=== PATIENT | female | born 1980 | race Hispanic/Latino ===

== ENCOUNTER 2017-06-02 15:25 | Outpatient (CLI) | payer OTHER | END 2017-06-02 15:26 | disposition home or self-care (01) | LOC: LABHHL 15:25 | PROVIDERS: ATTEND Surgery | DX: R92.0 Mammographic microcalcification found on diagnostic imaging of breast (principal) | CPT/HCPCS: 88305 ==

== ENCOUNTER 2017-08-04 08:06 | Observation (INO) | payer BC, MEDICARE ==
--- NOTE | 2017-08-02 13:23 | Anesthesia Consultation ---
Anesthesia Consult and Med Hx - Airway Anesthetic Teeth Evaluation: Good ROM Head & Neck: Adequate Mental/Hyoid Distance: Adequate Mallampati Class: Class II Intubation Access Assessment: Good - Pulmonary Exam CTA: Yes - Cardiac Exam Cardiac Exam: RRR - Pre-Operative Health Status ASA Pre-Surgery Classification: ASA2 Proposed Anesthetic Plan: General - Central Nervous System Hx Psychiatric Problems: Yes - Other Systems Hx Alcohol Use: No Hx Substance Use: No Hx Cancer: Yes
[~2017-08-04 08:06] MED LIST: ANCEF IV ONE; BACITRACIN IR ONE; GARAMYCIN IV ONE; NACL 0.9% IR ONE; VERSED IV NR
[2017-08-04] MEDS ORDERED: GARAMYCIN ONE (08:12)
[2017-08-04] MEDS ORDERED: BACITRACIN ONE (08:12)
[2017-08-04] MEDS ORDERED: METHYLENE BLUE ONE ×2 (08:13)
[2017-08-04] MEDS ORDERED: XYLOCAINE 1% 20 mL ONE (08:14)
[2017-08-04] MEDS ORDERED: NACL 0.9% 1000 ML 1,000 ML ONE ×2 (08:14→08:15)
[2017-08-04] MEDS ORDERED: MARCAINE 0.25% INFILTRATI ONE (08:15)
[2017-08-04] MEDS ORDERED: NACL BACTERIOSTATIC INFILTRATI ONE (08:59)
[2017-08-04] MEDS: LACTATED RINGERS 1,000 ML IV SCH (09:15)
[2017-08-04] MEDS ORDERED: SUBLIMAZE IV NR (09:50)
[2017-08-04] MEDS ORDERED: DECADRON IV NR (09:53)
[2017-08-04] MEDS ORDERED: ANCEF/STERILE WATER 2 GM/20 ML IV NR (10:00)
[2017-08-04] MEDS ORDERED: XYLOCAINE 1% 20 mL INFILTRATI NR (10:00)
[2017-08-04] MEDS ORDERED: NEURONTIN PO NR (10:00)
[2017-08-04] MEDS ORDERED: VERSED IV NR (10:00)
[2017-08-04] MEDS ORDERED: MARCAINE-EPI 0.5%-1:200,000 INFILTRATI ONE (10:25)
[2017-08-04] MEDS ORDERED: CLONIDINE 1,000 MCG/10 ML VIAL EP ONE (10:25)
[2017-08-04] MEDS ORDERED: XYLOCAINE MPF 2% ONE (10:35)
[2017-08-04] MEDS ORDERED: SUBLIMAZE ONE (10:35)
[2017-08-04] MEDS ORDERED: DIPRIVAN 10 MG/ML IV ONE (10:36)
--- NOTE | 2017-08-04 10:54 | Operative Report ---
Operative Report Operative Report: Date of Service: August 04, 2017 Preoperative diagnosis: Personal history of right breast cancer Postoperative diagnosis: Same Procedure: Left total mastectomy and right total mastectomy and left port removal Surgeon: Gauri Mosher M.D. Asst.: Leticia Loja Anesthesia: Gen. Findings: Bilateral prophylactic total mastectomy; fibrosis of the right breast Complications: None Drains: per Plastic Surgery Estimated blood loss: Minimal Disposition: PACU in good condition Indications for operative procedure: This is a 36-year-old lady with a personal history right breast cancer Stage III diagnosed in 2014. She completed chemoradiation therapy. She wished to proceed with a prophylactic bilateral total mastectomy. She wished to proceed with plastic reconstructive surgery of immediate tissue cultural anthropology professor placement. Procedure in detail: Anesthesia placed a bilateral pectoral muscle block prior to going to the operating room. The patient was taken to the operating room and was placed supine. Gen. anesthesia was administered. Bilateral breast were prepped and draped in the normal sterile operative fashion. Timeout was performed. Typical mastectomy incision markings were made. Attention was first taken towards left port removal. A skin incision was made with a 15 blade knife at previous port incision. The subcutaneous tissues were opened. The port was encountered, the catheter was dissected free with the aid of the bovie cautery and removal from the subclavian vein in its entirety. The port was then dissected free from its capsule with the aid of the bovie cautery. Hemostasis was obtained with the bovie cautery. The subcutaneous tissues were approximated and closed using interrupted 3-0 Vicryl. The skin was then closed using a running 4-0 Monocryl followed by skin affix. Attention was then taken towards the left breast first. A skin incision was made with a 10 blade knife and dissection taken down to the subcutaneous tissues. First began raising of the superior flap to the level of the clavicle superiorly and posteriorly to the pectoralis muscle. Followed by raising of the medial flap to the level of the sternum and posteriorly to the pectoralis muscle. Followed by raising of the lateral flap to the level of the latissimus dorsi muscle and taken down posteriorly. Followed by raising of the inferior flap to the level of the inframammary fold taken posterior to the pectoralis muscle. The mastectomy/breast was removed from the pectoralis muscle without incident. The specimen was appropriately marked and sent to pathology. Hemostasis was obtained with the bovie cautery. Attention was then taken towards the right breast. A skin incision was made with a 10 blade knife and dissection taken down to the subcutaneous tissues. First began raising of the superior flap to the level of the clavicle superiorly and posteriorly to the pectoralis muscle. Followed by raising of the medial flap to the level of the sternum and posteriorly to the pectoralis muscle. Followed by raising of the lateral flap to the level of the latissimus dorsi muscle and taken down posteriorly. Followed by raising of the inferior flap to the level of the inframammary fold taken posterior to the pectoralis muscle. The mastectomy/breast was removed from the pectoralis muscle without incident. The specimen was appropriately marked and sent to pathology. Hemostasis was obtained with the bovie cautery. Significant fibrosis was noted throughout the breast. The patient tolerated surgery very well. Plastic surgery then proceeded with placement of bilateral tissue expanders.
[2017-08-04] MEDS ORDERED: NACL P/F VIAL (10 ML) 10 ML ONE (13:39)
[2017-08-04] MEDS ORDERED: ANCEF ONE (13:41)
[2017-08-04] MEDS ORDERED: NACL 0.9% IR ONE ×2 (13:55→15:22)
[2017-08-04] MEDS ORDERED: DILAUDID ONE (13:56)
[2017-08-04] MEDS ORDERED: DECADRON ONE (15:11)
[2017-08-04] MEDS ORDERED: BACITRACIN IR ONE (15:20)
[2017-08-04] MEDS ORDERED: ANCEF IV ONE (15:20)
[2017-08-04] MEDS ORDERED: GARAMYCIN IV ONE (15:20)
[2017-08-04] MEDS ORDERED: METHYLENE BLUE IRRIGATION ONE (15:22)
--- NOTE | 2017-08-04 16:15 | Anesthesia Day of Surgery ---
Anesthesia Day of Surgery - Day of Surgery Patient Examined: Yes Patient H&P Reviewed: Yes Patient is NPO: Yes
--- NOTE | 2017-08-04 16:16 | Post Anesthesia Evaluation ---
- Post Anesthesia Evaluation Patient Participated: Yes Airway Patent: Yes Stable Respiratory Function: Yes Nausea/Vomiting: No Temp > 96.8F: Yes Pain Manageable: Yes Adequeate Hydration: Yes Anesthesia Complications: No
[2017-08-04] MEDS ORDERED: ZOFRAN ONE (16:55)
[2017-08-04] MEDS ORDERED: TYLENOL PO PRN (17:01)
[2017-08-04] MEDS ORDERED: SODIUM CHLORIDE FLUSH SYRINGE 10 ML IV PRN (17:01)
[2017-08-04] MEDS ORDERED: REGLAN PO PRN (17:01)
[2017-08-04] MEDS ORDERED: BENADRYL PO PRN (17:01)
[2017-08-04] MEDS ORDERED: ZOFRAN IV PRN ×2 (17:01→21:15)
--- NOTE | 2017-08-04 17:01 | Post Operative Note ---
Pre-op diagnosis: history of breast cancer Post-op diagnosis: same Findings: bilateral mastectomy defects Procedure: Bilateral breast reconstruction with tissue expanders and biologic mesh, pre- pectoral Anesthesia: GETA Surgeon: ALEX BROWN Estimated blood loss: 50-100ml Pathology: none Condition: stable Disposition: PACU
--- NOTE | 2017-08-04 17:50 | Operative Report ---
PREOPERATIVE DIAGNOSIS: Personal history of right-sided breast cancer. POSTOPERATIVE DIAGNOSIS: Personal history of right-sided breast cancer. PROCEDURE: 1. Bilateral breast reconstruction with tissue rails developer in a prepectoral pocket, CPT code 92819-06. 2. Bilateral breast reconstruction utilizing biological mesh, FlexHD for prepectoral breast reconstruction, CPT code 79249-57. 3. Application of negative pressure wound VAC device to bilateral breast reconstructions for postoperative wound healing, CPT code 87297-66. SURGEON: Rogelio Morris MD NEWSPAPER COPY EDITOR: None. ANESTHESIA: General. OPERATIVE INDICATIONS: This is a 36-year-old female who was referred to me by Dr. Gauri Mosher, who had a previous history of a right-sided breast cancer, treated with lumpectomy and radiation. The patient now elected to proceed with bilateral mastectomies prophylactically due to multiple concerns. This is discussed with the breast surgeon. This was agreed upon and the patient was looking for advice on reconstruction. Given her high BMI and personal desires, we elected to proceed with a tissue rails developer reconstruction to eventual implant reconstruction and possible flap reconstruction down the road if so desired. Risks and benefits of surgery were discussed with the patient. The patient agreed. OPERATIVE DETAILS: After informed consent was obtained, the patient was brought to the operating room and placed supine on the operating table. Preoperative antibiotics and general anesthesia were administered. Dr. Mosher began her portion of the operation, and I came into the operation after the completion of the left-sided mastectomy. Timeout was performed verifying the name of the patient, the operation being performed. I evaluated the left breast. We measured the width of the breast pocket and the mastectomy skin flaps was thick enough that I thought that a prepectoral reconstruction was a viable option for her. We therefore took a [employer] high profile 600 mL tissue rails developer, serial number [id number], and we placed that on the back table in triple antibiotic irrigation. We removed all of the air from it and then filled it with 300 mL of saline. I then opened up a piece of FlexHD pliable perforated, 15 x 24 cm with serial number [id number], and wrapped that around the tissue rails developer securing it in the back with 2-0 PDS spanning sutures and then brought out the suture tabs and secured those as well. We then soaked in antibiotic irrigation, achieved hemostasis in the breast pocket, and laid the tissue rails developer into the prepectoral space, positioning inappropriately. It was then secured to the chest wall using a combination of suture tabs and also the FlexHD wrap. This was done with 2-0 PDS sutures. We then resecured the lateral breast border with 2-0 Vicryl sutures to restore the contour and shape. I then placed two 19-Syrian round Js drains into the prepectoral pocket for postoperative drainage. Irrigated again, achieved hemostasis, and we began with closure. 3-0 Monocryl deep dermals were used, and then a 3-0 Monocryl running subcuticular using a barbed suture. Drains were sewn in place, a peak of negative pressure wound VAC device was applied to the incision for postoperative healing. I then turned my attention to the right breast. Once Dr. Mosher was finished with the mastectomy, again mastectomy skin flaps were adequate and we proceeded with the exact same procedure on the right side. We again used 600 mL [employer] high profile tissue rails developer, serial number on the right-sided rails developer was [id number], and serial number on the FlexHD was [id number]. Again, a wrap was performed and the construct was placed in the prepectoral pocket and sewn to the chest wall and inframammary fold using 2-0 PDS sutures. Lateral breast border was secured using 2-0 Vicryl sutures. Two 19-Syrian round Js drains were placed in the prepectoral pocket. Skin was closed using 3-0 Monocryl deep dermals and a 3-0 Monocryl running subcuticular with a barbed suture. Negative pressure wound VAC device was applied to the right breast as well. The patient tolerated the procedure well, was awakened from general anesthesia, transferred to PACU in stable condition. OPERATIVE FINDINGS: Bilateral mastectomy defects. COMPLICATIONS: None. ESTIMATED BLOOD LOSS: Less than 50 mL. JOB# [id number] SUE/BRUNO
[2017-08-04] MEDS ORDERED: ZOFRAN IV ONE (17:52)
[2017-08-04] MEDS ORDERED: LACTATED RINGERS 1,000 ML IV SCH (18:00)
[2017-08-04] MEDS: PERCOCET 5/325 PO PRN (20:08)
[2017-08-04] MEDS ORDERED: REGLAN IV PRN (21:11)
[2017-08-04] MEDS ORDERED: ANCEF/NS 1 GM/50 ML 1 GM/50 ML BAG IV SCH (22:00)
[2017-08-04] MEDS: ceFAZolin 1 GM in NACL 0.9% 20 ML IV SCH (23:01)
[2017-08-04] MEDS: COLACE PO SCH (23:01)
[2017-08-04] MEDS: NEURONTIN PO SCH (23:02)
[2017-08-04] MEDS: MORPHINE IV PRN (23:08)
[2017-08-05] MEDS: PERCOCET 5/325 PO PRN ×3 (00:59→11:47)
[2017-08-05] MEDS: LACTATED RINGERS 1,000 ML IV SCH (01:00)
[2017-08-05] MEDS: MORPHINE IV PRN (04:03)
[2017-08-05] MEDS: ceFAZolin 1 GM in NACL 0.9% 20 ML IV SCH (06:31)
[2017-08-05] MEDS: NEURONTIN PO SCH (06:32)
[2017-08-05] MEDS: COLACE PO SCH (09:22)
[2017-08-05 12:56] VITALS: BP 133/71
== END 2017-08-05 12:48 | disposition home or self-care (01) ==
LOC: OR 08:06 → OB 17:01
PROVIDERS: ADMIT Plastic Surgery; ATTEND Plastic Surgery
DX: C50.911 Malignant neoplasm of unspecified site of right female breast (principal); C50.912 Malignant neoplasm of unspecified site of left female breast
CPT/HCPCS: 19357; 64450; 88300; 88309; 96374; 96375; 96376; C1789; G0378; J0690; J0735; J1100; J1170; J1580; J2250; J2270; J2405; J2704; J3010; J7030; J7120; Q4128; Q9968; 88302

== ENCOUNTER 2018-07-03 23:34 | Inpatient (IN) | payer BC, MEDICARE ==
[2018-07-03] MEDS ORDERED: NACL 0.9% 1000 ML 1,000 ML IV ONE (23:45)
[2018-07-04] MEDS ORDERED: TORADOL IV ONE (00:25)
[2018-07-04] MEDS ORDERED: VANCOMYCIN 1,500 MG in NACL 0.9% 500 ML 500 ML IV ONE (00:25)
[2018-07-04] MEDS ORDERED: ZOFRAN IV ONE (00:25)
[2018-07-04] MEDS ORDERED: DILAUDID IV ONE (00:25)
[2018-07-04 00:27] LABS: Basophils % (Auto) 0.4 % (0.0-1.8); Eosinophils # (Auto) 0.3 K/mm3 (0.0-0.4); Eosinophils % (Auto) 3.4 % (0.0-4.3); Lymphocytes # (Auto) 1.6 K/mm3 (1.2-5.4); Lymphocytes % (Auto) 21.5 % (13.4-35.0); Mean Corpuscular HGB Conc 34 % (30-34); Mean Corpuscular Volume 88 fl (79-97); Monocytes # (Auto) 0.8 K/mm3 (0.0-0.8); Monocytes % (Auto) 10.7 % (0.0-7.3); Platelet Count 215 K/mm3 (140-440)
[2018-07-04 00:38] LABS: Alanine Aminotransferase 12 units/L (7-56); Albumin 3.8 g/dL (3.9-5); BUN/Creatinine Ratio 20; Blood Urea Nitrogen 10 mg/dL (7-17); Calcium 9.2 mg/dL (8.4-10.2); Hemolysis Index 4
--- NOTE | 2018-07-04 00:50 | Emergency Department Report ---
ED Fever HPI - General Chief Complaint: Fever Stated Complaint: POST OP INFECTION Time Seen by Provider: 07/03/18 23:43 Source: patient, old records (patient was medicated here August 2007 with pulse breast infection. Treated with Zyvox) Exam Limitations: no limitations - History of Present Illness Initial Comments: 37-year-old female with a past medical history of breast cancer and bilateral mastectomy presents to the hospital with signs and symptoms of right breast infection. Patient had breast expanders placed last year after mastectomy that got infected and was subsequently removed. Patient had a second attempt at breast insole presser placement on June 06. The left breast tissue insole presser ruptured. Since Wednesday she has had redness across her right breast tissue, increased right breast pain extending to her axilla, and increase drainage to her SAGE drain. Typically patient has 30-40 mL of output from her SAGE drain daily. Drainage has increased to 60-80ml and is now yellow in color. Patient reports a MAXIMUM TEMPERATURE of 101. She took Motrin prior to arrival. Her physician called in doxycycline and she took one dose today. Surgeon: Dr Morris ED Review of Systems ROS: Stated complaint: POST OP INFECTION Other details as noted in HPI ED Past Medical Hx - Past Medical History Previous Medical History?: Yes Hx Hypertension: No Hx Heart Attack/AMI: No Hx Liver Disease: No Hx Renal Disease: No Hx of Cancer: Yes (breast) Hx Sickle Cell Disease: No Hx Seizures: No Hx Asthma: No Hx COPD: No Hx HIV: No - Surgical History Past Surgical History?: Yes Hx Pacemaker: No Hx Internal Defibrillator: No Hx Breast Surgery: Yes (bilat Mastectomy) Additional Surgical History: hysterectomy, 2015. c-sect x2. lumpectomy - Social History Smoking Status: Never Smoker Substance Use Type: None - Medications Home Medications: Home Medications Medication Instructions Recorded Confirmed Last Taken Type Anastrozole (Nf) [Arimidex (Nf)] 1 mg PO DAILY 07/29/17 08/22/17 08/03/17 09:00 History Sertraline [Zoloft] 200 mg PO QDAY 07/29/17 08/22/17 08/03/17 09:00 History Linezolid [Zyvox] 600 mg PO BID 14 Days tablet 08/26/17 Unknown Rx oxyCODONE /ACETAMINOPHEN [Percocet 1 tab PO Q6HR PRN #20 tablet 08/26/17 Unknown Rx 5/325] ED Physical Exam - General Limitations: No Limitations ED Course Vital Signs 07/03/18 07/04/18 07/04/18 23:38 00:40 00:45 Temperature 98.1 F Pulse Rate 94 H Respiratory 18 15 15 Rate Blood Pressure 142/88 O2 Sat by Pulse 98 Oximetry - Consultations Consultation #1: 07/04/18 00:40 DR Morris called the dept prior to pt arrival to inform me about the pt. and he was recontacted and informed of patient's status and lab results He plans take patient to the OR in a.m. Hospitalist to admit ED Medical Decision Making - Lab Data Result diagrams: 07/03/18 23:58 07/03/18 23:58 Lab Results 07/03/18 07/03/18 07/03/18 Range/Units 23:58 23:58 23:58 WBC 7.6 (4.5-11.0) K/mm3 RBC 4.00 (3.65-5.03) M/mm3 Hgb 12.0 (10.1-14.3) gm/dl Hct 35.0 (30.3-42.9) % MCV 88 (79-97) fl MCH 30 (28-32) pg MCHC 34 (30-34) % RDW 14.0 (13.2-15.2) % Plt Count 215 (140-440) K/mm3 Lymph % (Auto) 21.5 (13.4-35.0) % Dickson % (Auto) 10.7 H (0.0-7.3) % Eos % (Auto) 3.4 (0.0-4.3) % Baso % (Auto) 0.4 (0.0-1.8) % Lymph # 1.6 (1.2-5.4) K/mm3 Dickson # 0.8 (0.0-0.8) K/mm3 Eos # 0.3 (0.0-0.4) K/mm3 Baso # 0.0 (0.0-0.1) K/mm3 Seg Neutrophils % 64.0 (40.0-70.0) % Seg Neutrophils # 4.9 (1.8-7.7) K/mm3 Sodium 139 (137-145) mmol/L Potassium 4.1 (3.6-5.0) mmol/L Chloride 98.9 (98-107) mmol/L Carbon Dioxide 26 (22-30) mmol/L Anion Gap 18 mmol/L BUN 10 (7-17) mg/dL Creatinine 0.5 L (0.7-1.2) mg/dL Estimated GFR > 60 ml/min BUN/Creatinine Ratio 20 % Glucose 104 H (65-100) mg/dL Lactic Acid 1.10 (0.7-2.0) mmol/L Calcium 9.2 (8.4-10.2) mg/dL Total Bilirubin 0.30 (0.1-1.2) mg/dL AST 11 (5-40) units/L ALT 12 (7-56) units/L Alkaline Phosphatase 68 (35-129) units/L Total Protein 7.3 (6.3-8.2) g/dL Albumin 3.8 L (3.9-5) g/dL Albumin/Globulin Ratio 1.1 % - Medical Decision Making Patient be admitted to the hospital for further management by surgery and IV ant ibiotic + infection without signs of sepsis or septic shock tx with iv abx, pain meds, ivf, and nausea meds in ed - Differential Diagnosis cellulitis, abscess Critical Care Time: No Critical care attestation.: If time is entered above; I have spent that time in minutes in the direct care of this critically ill patient, excluding procedure time. ED Disposition Clinical Impression: Postoperative infection of breast incision Disposition: OP ADMIT IP TO THIS HOSP Is pt being admited?: Yes Condition: Stable Time of Disposition: 00:50 (DR martinez/hosp)
[2018-07-04] MEDS ORDERED: ZOFRAN IV PRN (01:39)
[2018-07-04] MEDS ORDERED: SODIUM CHLORIDE FLUSH SYRINGE 10 ML IV PRN (01:39)
[2018-07-04] MEDS ORDERED: TYLENOL PO PRN (01:39)
[2018-07-04] MEDS ORDERED: NACL 0.9% 1000 ML 1,000 ML IV SCH (02:00)
--- NOTE | 2018-07-04 02:16 | History and Physical Report ---
History of Present Illness Date of examination: 07/04/18 Date of admission: 07/04/2018 Chief complaint: Fever, Right breast pain, and purulent drainage History of present illness: 37 year old female with history of breast cancer, status post bilateral mastectomy (2017) who presents to [facility] ED with complaints of fever of 101, right breasts pain, and purulent drainage. She had breast expanders placed in May of this year. Note she previously had expanders placed in 2017, but had to have them removed in August 2017 d/t sepsis secondary to left breast abscess. Since Wednesday she has a temperature 101. In addition, she has redness across her right (breast) tissue and progressively worsening pain that extends to her rt axilla. She has a SAGE drain which normally drains 30-40 mL's per day. She noticed that her drainage is now yellow colored and output has increased to 60- 80 mL's per day. Patient called her physician to notify him of symptoms. Her physician called in a prescription for doxycycline and she has taken 1 dose. Admits fever, nausea, and fatigue. Denies denies cough, hemoptysis, headache, recent sick exposure. Past History Past Medical History: cancer (breast cancer) Past Surgical History: (2), hysterectomy (2015), mastectomy (bilateral), Other Social history: , lives with family Family history: no significant family history Medications and Allergies Allergies Allergy/AdvReac Type Severity Reaction Status Date / Time carboplatin Allergy Anaphylaxis Verified 07/29/17 14:48 Home Medications Medication Instructions Recorded Confirmed Last Taken Type Anastrozole (Nf) [Arimidex (Nf)] 1 mg PO DAILY 07/29/17 08/22/17 08/03/17 09:00 History Sertraline [Zoloft] 100 mg PO QDAY 07/04/18 07/04/18 Unknown History Active Meds: Active Medications Acetaminophen (Tylenol) 650 mg PO Q4H PRN PRN Reason: Pain MILD(1-3)/Fever >100.5/ESCOBEDO Enoxaparin Sodium (Lovenox) 40 mg SUB-Q QDAY@1000 MAURICE Sodium Chloride (Nacl 0.9% 1000 Ml) 1,000 mls @ 75 mls/hr IV DIRECT MAURICE Piperacillin Sod/Tazobactam Sod (Zosyn/Ns 4.5gm/100ml) 4.5 gm in 100 mls @ 200 mls/hr IV Q8HR MAURICE; Protocol Morphine Sulfate (Morphine) 2 mg IV Q3H PRN PRN Reason: Pain, Moderate (4-6) Ondansetron HCl (Zofran) 4 mg IV Q8H PRN PRN Reason: Nausea And Vomiting Sodium Chloride (Sodium Chloride Flush Syringe 10 Ml) 10 ml IV BID MAURICE Sodium Chloride (Sodium Chloride Flush Syringe 10 Ml) 10 ml IV PRN PRN PRN Reason: LINE FLUSH Review of Systems All systems: negative (reviewed and no additional remarkable complaints except as noted below) Constitutional: fever (MAXIMUM TEMPERATURE 101), fatigue Breasts: discharge, pain, other (rt redness and warm to touch) Exam - Physical Exam Narrative exam: Physical exam General appearance: Present: No acute distress, pleasant, well-nourished, oriented 3 - EENT Eyes: Present: PERRL, EOM intact ENT: hearing intact, normal dentition - Neck Neck: Present: supple, normal ROM - Respiratory Respiratory effort: Non-labored Respiratory: Clear throughout - Cardiovascular Heart rate: 94 (bpm) Rhythm: regular Heart Sounds: Present: S1 & S2. Absent: rub, click - Extremities Extremities: no ischemia, pulses intact, - Peripheral Assessment Peripheral Pulses: within normal limits - Abdominal General gastrointestinal: soft, non-tender, normal bowel sounds - Integumentary Integumentary: Present: Bilateral mastectomy , Red discoloration to right, which is warm to touch. - Musculoskeletal Musculoskeletal: Able to move all extremities - Psychiatric Psychiatric: cooperative - Constitutional Vitals: Temp Pulse Resp BP Pulse Ox 98.1 F 94 H 15 142/88 98 07/03/18 23:38 07/03/18 23:38 07/04/18 00:45 07/03/18 23:38 07/03/18 23:38 Results - Labs CBC & Chem 7: 07/03/18 23:58 07/03/18 23:58 Labs: Laboratory Last Values WBC 7.6 K/mm3 (4.5-11.0) 07/03/18 23:58 RBC 4.00 M/mm3 (3.65-5.03) 07/03/18 23:58 Hgb 12.0 gm/dl (10.1-14.3) 07/03/18 23:58 Hct 35.0 % (30.3-42.9) 07/03/18 23:58 MCV 88 fl (79-97) 07/03/18 23:58 MCH 30 pg (28-32) 07/03/18 23:58 MCHC 34 % (30-34) 07/03/18 23:58 RDW 14.0 % (13.2-15.2) 07/03/18 23:58 Plt Count 215 K/mm3 (140-440) 07/03/18 23:58 Lymph % (Auto) 21.5 % (13.4-35.0) 07/03/18 23:58 Marion % (Auto) 10.7 % (0.0-7.3) H 07/03/18 23:58 Eos % (Auto) 3.4 % (0.0-4.3) 07/03/18 23:58 Baso % (Auto) 0.4 % (0.0-1.8) 07/03/18 23:58 Lymph # 1.6 K/mm3 (1.2-5.4) 07/03/18 23:58 Marion # 0.8 K/mm3 (0.0-0.8) 07/03/18 23:58 Eos # 0.3 K/mm3 (0.0-0.4) 07/03/18 23:58 Baso # 0.0 K/mm3 (0.0-0.1) 07/03/18 23:58 Seg Neutrophils % 64.0 % (40.0-70.0) 07/03/18 23:58 Seg Neutrophils # 4.9 K/mm3 (1.8-7.7) 07/03/18 23:58 Sodium 139 mmol/L (137-145) 07/03/18 23:58 Potassium 4.1 mmol/L (3.6-5.0) 07/03/18 23:58 Chloride 98.9 mmol/L (98-107) 07/03/18 23:58 Carbon Dioxide 26 mmol/L (22-30) 07/03/18 23:58 18 mmol/L 07/03/18 23:58 BUN 10 mg/dL (7-17) 07/03/18 23:58 0.5 mg/dL (0.7-1.2) L 07/03/18 23:58 Estimated GFR > 60 ml/min 07/03/18 23:58 20 % 07/03/18 23:58 Glucose 104 mg/dL (65-100) H 07/03/18 23:58 Lactic Acid 1.10 mmol/L (0.7-2.0) 07/03/18 23:58 Calcium 9.2 mg/dL (8.4-10.2) 07/03/18 23:58 0.30 mg/dL (0.1-1.2) 07/03/18 23:58 AST 11 units/L (5-40) 07/03/18 23:58 ALT 12 units/L (7-56) 07/03/18 23:58 68 units/L (35-129) 07/03/18 23:58 7.3 g/dL (6.3-8.2) 07/03/18 23:58 3.8 g/dL (3.9-5) L 07/03/18 23:58 1.1 % 07/03/18 23:58 Short CBC 07/03/18 Range/Units 23:58 WBC 7.6 (4.5-11.0) K/mm3 Hgb 12.0 (10.1-14.3) gm/dl Hct 35.0 (30.3-42.9) % Plt Count 215 (140-440) K/mm3 BMP 07/03/18 23:58 Sodium 139 Potassium 4.1 Chloride 98.9 Carbon Dioxide 26 BUN 10 Creatinine 0.5 L Glucose 104 H Calcium 9.2 Liver Function 07/03/18 Range/Units 23:58 Total Bilirubin 0.30 (0.1-1.2) mg/dL AST 11 (5-40) units/L ALT 12 (7-56) units/L Alkaline Phosphatase 68 (35-129) units/L Albumin 3.8 L (3.9-5) g/dL Assessment and Plan Assessment and plan: 37 year old female with history of breast cancer, status post bilateral mastectomy (2018) who presents to [facility] ED with complaints of fever of 101, right breasts pain, and purulent drainage. On presentation she is afebrile, with no leukocytosis. HR elevated at 94bpm. She was treated empirically with 1 dose of vancomycin in ED. Patient will be admitted to the surgical floor. Dr Morris (surgeon) has been consulted. Cellulitis secondary to right breast abscess Right breast abscess History of breast cancer (2015); s/p chemo with radiation s/p of bilateral mastectomy (2018) Plan: Continue supportive care Monitor vitals Monitor CBC Blood cultures pending Start Zosyn IVF NS@ 75ml/hr Nothing by mouth Dr Morris (surgeon) following Pain management DVT PPX on Lovenox Advance Directives: No VTE prophylaxis?: Chemical Plan of care discussed with patient/family: Yes
[2018-07-04] MEDS ORDERED: SOLU-Medrol IV ONE (02:19)
[2018-07-04] MEDS ORDERED: BENADRYL IV ONE (02:19)
[2018-07-04] MEDS ORDERED: SOLU-Medrol ONE (02:23)
[2018-07-04] MEDS ORDERED: NACL 0.9% 1000 ML 1,000 ML ONE (03:23)
[2018-07-04] MEDS: MORPHINE IV PRN ×5 (04:24→18:52)
--- NOTE | 2018-07-04 04:29 | Anesthesia Consultation ---
Anesthesia Consult and Med Hx Date of service: 07/04/18 - Airway Anesthetic Teeth Evaluation: Good, Chipped ROM Head & Neck: Adequate Mental/Hyoid Distance: Adequate Mallampati Class: Class II Intubation Access Assessment: Good - Pulmonary Exam CTA: Yes - Cardiac Exam Cardiac Exam: RRR Anesthetic Concerns: unclear if patient meets NPO/ASA fasting guidelines (>8hrs). patient states last had anything to eat at 7pm 07/03 - Pre-Operative Health Status ASA Pre-Surgery Classification: ASA2 - Pre-Anesthesia Comment Pre-Anesthesia Comments: 37 year old female w/pmh significant for breast CA s/p b/L mastectomy (2019) with tissue sergeant of officers placements p/t ED with R. breast pain with purulent drainage concerning for cellulitis/abscess. - Pulmonary Hx Smoking: No Hx Asthma: No Hx Respiratory Symptoms: No SOB: No COPD: No Hx Pneumonia: No Hx Sleep Apnea: No - Cardiovascular System Hx Hypertension: No Hx Coronary Artery Disease: No Hx Heart Attack/AMI: No Hx Angina: No Hx Percutaneous Transluminal Coronary Angioplasty (PTCA): No Hx Cardia Arrhythmia: No Hx Pacemaker: No Hx Internal Defibrillator: No Hx Valvular Heart Disease: No Hx Heart Murmur: No Hx Peripheral Vascular Disease: No - Central Nervous System Hx Neuromuscular Disorder: No Hx Seizures: No CVA: No Hx Back Pain: No Hx Psychiatric Problems: Yes - Gastrointestinal Hx Ulcer: No Hx Gastroesophageal Reflux Disease: No - Endocrine Hx Renal Disease: No Hx End Stage Renal Disease: No Hx Cirrhosis: No Hx Liver Disease: No Hx Insulin Dependent Diabetes: No Hx Non-Insulin Dependent Diabetes: No Hx Thyroid Disease: No Hx Hypothyroidism: No Hx Hyperthyroidism: No - Hematic Hx Anemia: No Hx Sickle Cell Disease: No - Other Systems Hx Alcohol Use: No Hx Substance Use: No Hx Cancer: Yes Hx Obesity: No - Additional Comments Anesthesia Medical History Comments: states she gets nausea with anesthesia
[2018-07-04] MEDS ORDERED: DECADRON ONE (05:17)
[2018-07-04] MEDS ORDERED: SUBLIMAZE ONE (05:17)
[2018-07-04] MEDS ORDERED: ZOFRAN ONE (05:17)
[2018-07-04] MEDS ORDERED: DIPRIVAN 10 MG/ML IV ONE (05:17)
--- NOTE | 2018-07-04 05:33 | Anesthesia Day of Surgery ---
Anesthesia Day of Surgery - Day of Surgery Patient Examined: Yes Patient H&P Reviewed: Yes Patient is NPO: Yes Beta Blockers: No Cardiac Clearance: No Pulmonary Clearance: No Ircky's Test: Negative
[2018-07-04] MEDS ORDERED: VERSED ONE (05:55)
[2018-07-04] MEDS ORDERED: ZOSYN/NS 4.5GM/100ML 4.5 GM/100 ML VIAL IV SCH (06:00)
[2018-07-04] MEDS ORDERED: ZOSYN/NS 3.375GM/50ML 3.375 GM/50 ML BAG IV SCH (06:00)
--- NOTE | 2018-07-04 06:00 | Consultation ---
History of Present Illness - Reason for Consult Consult date: 07/04/18 right breast pain - History of Present Illness 37yF well known to me, history of right breast cancer treated initially with lumpectomy and XRT. Then decided on bilateral mastectomies and vp informatics reconstruction. This was complicated by bilateral vp informatics infections. They were removed and nearly a year was waited to return for a second attempt. 1 month ago we placed bilateral expanders. She did well and all drains were removed except one on the right side that was still having slight increased output. This weekend she started having low grade fevers, increased right breast pain and swelling, and an increase in drainage from the drain. She began having redness of the breast last night. I instructed her to come into the ER for evaluation. Her wbc was normal and fever had resolved but right breast pain was getting worse and redness as well. She was admitted to the hospitalist. I discussed with her we would likely need to remove the vp informatics given her history of infection and her current symptoms. She is in agreement. In addition the left sided vp informatics possibly has a leak and she does not want to worry about that one getting infected as well so she would like to have them both removed. Past History Past Medical History: cancer (breast cancer) Past Surgical History: (2), hysterectomy (2015), mastectomy (bilateral), Other Social history: , lives with family Family history: no significant family history Medications and Allergies Allergies Allergy/AdvReac Type Severity Reaction Status Date / Time carboplatin Allergy Anaphylaxis Verified 07/29/17 14:48 Home Medications Medication Instructions Recorded Confirmed Last Taken Type Anastrozole (Nf) [Arimidex (Nf)] 1 mg PO DAILY 07/29/17 07/04/18 08/03/17 09:00 History Sertraline [Zoloft] 100 mg PO QDAY 07/04/18 07/04/18 Unknown History Active Meds: Active Medications Acetaminophen (Tylenol) 650 mg PO Q4H PRN PRN Reason: Pain MILD(1-3)/Fever >100.5/ESCOBEDO Enoxaparin Sodium (Lovenox) 40 mg SUB-Q QDAY@1000 MAURICE Sodium Chloride (Nacl 0.9% 1000 Ml) 1,000 mls @ 75 mls/hr IV DIRECT MAURICE Last Admin: 07/04/18 03:26 Dose: 75 mls/hr Documented by: Piperacillin Sod/Tazobactam Sod (Zosyn/Ns 4.5gm/100ml) 4.5 gm in 100 mls @ 200 mls/hr IV Q8HR MAURICE; Protocol Morphine Sulfate (Morphine) 2 mg IV Q3H PRN PRN Reason: Pain, Moderate (4-6) Last Admin: 07/04/18 04:24 Dose: 2 mg Documented by: Ondansetron HCl (Zofran) 4 mg IV Q8H PRN PRN Reason: Nausea And Vomiting Sertraline HCl (Zoloft) 100 mg PO QDAY [facility] Sodium Chloride (Sodium Chloride Flush Syringe 10 Ml) 10 ml IV BID [facility]ICE Sodium Chloride (Sodium Chloride Flush Syringe 10 Ml) 10 ml IV PRN PRN PRN Reason: LINE FLUSH Exam - Physical Exam Narrative exam: Emotional and tearful. No acute distress. RIGHT BREAST: Scant erythema present, swelling present. Drain in place with yellow cloudy fluid, no pus. Right breast and axilla are very tender to the to uch. LEFT BREAST appears normal, no signs of infection. - Constitutional Vitals: Temp Pulse Resp BP Pulse Ox 99.5 F 85 17 117/71 96 07/04/18 03:56 07/04/18 03:56 07/04/18 04:24 07/04/18 03:56 07/04/18 03:56 Results - Labs CBC & Chem 7: 07/03/18 23:58 07/03/18 23:58 Labs: Abnormal lab results 07/03/18 07/03/18 Range/Units 23:58 23:58 Johnson % (Auto) 10.7 H (0.0-7.3) % Creatinine 0.5 L (0.7-1.2) mg/dL Glucose 104 H (65-100) mg/dL Albumin 3.8 L (3.9-5) g/dL Assessment and Plan 37yF with history of breast cancer here with likely vp informatics infection PLAN: Start Antibiotics Consent obtained Long discussion had regarding options. At this point she would just like to remove both expanders. We will likely have to discuss autologous reconstruction with her. ID consult likely needed, will obtain intraop cultures. Rogelio Morris MD
[2018-07-04] MEDS ORDERED: XYLOCAINE 1% 20 mL ONE (06:08)
[2018-07-04] MEDS ORDERED: MARCAINE 0.5% INFILTRATI ONE (06:08)
[2018-07-04] MEDS ORDERED: XYLOCAINE MPF 2% ONE (06:21)
[2018-07-04] MEDS ORDERED: ANCEF ONE (06:21)
[2018-07-04] MEDS ORDERED: REGLAN IV PRN (06:48)
[2018-07-04] MEDS ORDERED: SUBLIMAZE IV PRN (06:48)
[2018-07-04] MEDS ORDERED: NARCAN 0.4 MG/1 ML IV PRN (06:48)
[2018-07-04] MEDS ORDERED: TORADOL IV PRN (06:48)
[2018-07-04] MEDS ORDERED: LACTATED RINGERS 1,000 ML ONE (07:06)
[2018-07-04] MEDS ORDERED: LOPRESSOR IV ONE (07:16)
[2018-07-04] MEDS ORDERED: TORADOL ONE (07:19)
[2018-07-04] MEDS ORDERED: DILAUDID ONE (07:19)
[2018-07-04] MEDS ORDERED: TYLENOL PR PRN (07:24)
[2018-07-04] MEDS: DILAUDID IV PRN ×2 (07:26→09:09)
--- NOTE | 2018-07-04 07:26 | Post Operative Note ---
Pre-op diagnosis: right breast pain Post-op diagnosis: other (Likely right breast tissue cook relief infection, left cook relief leak) Findings: right breast cook relief with cloudy fluid and unincorporated biologic mesh with obvious signs of inflammation. Left cook relief with leak under the suture tab. Procedure: removal bilateral tissue expanders, washout of right breast, removal unincorporated biologic mesh Anesthesia: GETA Surgeon: ALEX BROWN Estimated blood loss: minimal Pathology: none Specimen disposition: discarded Condition: stable Disposition: PACU (cultures of right breast pocket sent as well as culture of biologic mesh)
--- NOTE | 2018-07-04 08:50 | Operative Report ---
PREOPERATIVE DIAGNOSES: Right breast pain, possible infection. POSTOPERATIVE DIAGNOSIS: Likely right breast tissue director market research infection, incorporated biological mesh and left tissue director market research leak. PROCEDURE: 1. Removal of right breast tissue director market research infected and intact. 2. Incision and drainage, washout of complex postoperative fluid collection, right breast. 3. Removal of unincorporated biological mesh, right breast. 4. Removal of left breast tissue director market research material, ruptured. SURGEON: Rogelio Morris MD RF MANAGER: None. ANESTHESIA: General. OPERATIVE INDICATIONS: This is an unfortunate 37-year-old female with a history of right-sided breast cancer who had previously undergone a right lumpectomy and radiation therapy well over a year ago. She then decided that she wanted to undergo prophylactic mastectomies due to the fact that mammograms were showing some irregularities and she had significant anxiety, worrying about possible recurrence, so last year she had a bilateral mastectomy with tissue director market research reconstruction. Unfortunately, in the postoperative period, she ended up with a left-sided tissue director market research infection, which expanders had to be removed and then several days later the right side became infected and then that had to be removed. Once the expanders were removed, the infection was resolved. We waited close to a year for everything to relax. We treated her with antibiotics. She was seen by Infectious Disease and prior to going back this time, we put her on the decontamination protocol to try to minimize chances of infection. She wanted to proceed with a second attempt tissue director market research reconstruction and so we decided to give it another attempt, so one month ago, she had bilateral tissue expanders placed at [facility]. Everything went well. There were no issues. Two weeks postoperatively her left breast one of the drain inserted turned blue in color and I was concerned that she may have a leak of the director market research. We are going to address that. After everything had healed and she still has a drain on the right side due to high drain output, the drain output was coming down and the plan was to remove the drain this week; however, over this past weekend, she started having increased right breast pain, swelling, low-grade fevers and then last night started having some erythema of the right breast. I instructed her to go to the Emergency Room where she was evaluated and admitted and we decided that we would go ahead and remove the director market research due to the concern of infection and her previous history. We also decided we remove the left sided director market research due to the fact that it was likely leaking and the patient just wanted them both removed. Risks and benefits of surgery were discussed with the patient and she agreed. OPERATIVE DETAILS: With informed consent obtained, the patient was brought to the operating room and placed supine on the operating room table. Preoperative antibiotics and general anesthesia were administered. The patient was prepped and draped in usual sterile fashion. Timeout was called verifying the inpatient operation being performed. Started on the left side, I opened her previous inframammary incision and dissected down to the tissue director market research capsule. We incised the capsule, encountered some straw-colored serous fluid, which was suctioned out. We then identified the tissue director market research and went ahead and pulled the tissue director market research out the pocket. We inspected the pocket, all of the FlexHD was totally incorporated. We then went ahead and irrigated out the pocket, placed a 15-Sammarinese round Js drain and then closed with 3-0 Vicryls on the capsule and then 3-0 V-Loc barbed suture on the skin. We turned our attention to the right. We opened the inframammary incision, dissected down to the capsule. There was already inflamed tissue that was obviously different from the left side. Once we encountered the capsule, I incised the capsule. There was some fluid again in there that was still cloudy in nature. We went ahead and sent several swab cultures of the fluid. We then went ahead and removed the tissue director market research and irrigated out the pocket. It was very obvious that the FlexHD on this side had not incorporated and was pulling away from the surrounding tissue very easily. All of the FlexHD material was able to be pulled out and blocked with minimal effort due to the fact that it was minimally adherent to the tissues. Once the tissue was removed, we achieved hemostasis, we irrigated the pocket with Betadine and saline and then placed a 15-Sammarinese round Js drain. We went ahead, 3-0 Vicryl to close the deeper tissues and then a 3-0 Monocryl V-Loc barbed suture to the skin. We placed Biopatches and Tegaderms over the drains and Dermabond over the incisions. The patient tolerated the procedure well, was awakened from general anesthesia, transferred to PACU in stable condition. Of note, on the back table after completing the operation, I went ahead and filled the left tissue director market research with some fluid and then went ahead and applied pressure to it to see if we could identify the leak. There appeared to be a leak, which was coming right at the scene at the base of the tissue director market research at the 6 o'clock position, right where the suture tab was. It was unclear what the etiology of this was, but it appeared to be right at one of the scene and due to the fact that the patient did not have any initial blue or greenish drainage in the first week after surgery, I felt it was unlikely that there was any kind of inadvertent needle injury or tear. Then placement of the director market research intraoperatively and likely there was either some sort of manufacture defect or the patient had some unknown trauma which may have caused a tear, although the patient did not report that. We will send the director market research back to the company for evaluation. ESTIMATED BLOOD LOSS: Minimal. COMPLICATIONS: None. SPECIMENS: Bilateral tissue expanders removed, right-sided swab cultures and biological mesh sent for culture. JOB# [id number] Ulises/BRUNO
[2018-07-04] MEDS ORDERED: LOVENOX SUB-Q SCH (10:00)
[2018-07-04] MEDS: SODIUM CHLORIDE FLUSH SYRINGE 10 ML IV SCH ×2 (10:48→23:31)
--- NOTE | 2018-07-04 11:38 | Progress Note ---
Assessment and Plan Assessment and plan: 37-year-old with history of breast cancer status post bilateral mastectomy in 2018 who presented to the hospital with fever and right breast pain with purulent drainage. She has had expanders in her breast since May of this year. She had previous expanders August 2017 that with discontinued due to left breast abscess History of breast cancer status post bilateral mastectomy and chemotherapy with radiation Diagnoses/plan Right breast abscess continue empiric antibiotics, ID consult, 07/04 , Status post removal of bilateral tissue expanders washout of right breast and removal of one Incorporated biological mesh DVT prophylaxis with Lovenox History Interval history: Right breast pain is improved Review of systems Constitutional: No fevers, no malaise, no joint pains CVS: No chest pain, no orthopnea, no dyspnea on exertion, no pedal edema GI: No abdominal pain, no diarrhea, no vomiting, no constipation Respiratory: no wheezing, no coughing Hospitalist Physical - Physical exam Narrative exam: General.: Appears well, no distress, nontoxic HEENT: Moist mucous membranes, extraocular muscles intact, no lymphadenopathy Neck: supple Cardiac: S1-S2 heard Lungs: clear to auscultation bilaterally Bilateral breasts dressing, not removed Abdomen: soft , nontender, nondistended, bowel sounds positive Extremities: no edema clubbing or cyanosis Skin: no rash or lesions Neurologic: no gross focal deficits Psych: calm, and cooperative - Constitutional Vitals: Temp Pulse Resp BP Pulse Ox 98.7 F 94 H 18 128/77 100 07/04/18 08:26 07/04/18 07:54 07/04/18 10:10 07/04/18 08:26 07/04/18 07:54 Results - Labs CBC & Chem 7: 07/03/18 23:58 07/03/18 23:58 Labs: Laboratory Last Values WBC 7.6 K/mm3 (4.5-11.0) 07/03/18 23:58 RBC 4.00 M/mm3 (3.65-5.03) 07/03/18 23:58 Hgb 12.0 gm/dl (10.1-14.3) 07/03/18 23:58 Hct 35.0 % (30.3-42.9) 07/03/18 23:58 MCV 88 fl (79-97) 07/03/18 23:58 MCH 30 pg (28-32) 07/03/18 23:58 MCHC 34 % (30-34) 07/03/18 23:58 RDW 14.0 % (13.2-15.2) 07/03/18 23:58 Plt Count 215 K/mm3 (140-440) 07/03/18 23:58 Lymph % (Auto) 21.5 % (13.4-35.0) 07/03/18 23:58 Union % (Auto) 10.7 % (0.0-7.3) H 07/03/18 23:58 Eos % (Auto) 3.4 % (0.0-4.3) 07/03/18 23:58 Baso % (Auto) 0.4 % (0.0-1.8) 07/03/18 23:58 Lymph # 1.6 K/mm3 (1.2-5.4) 07/03/18 23:58 Union # 0.8 K/mm3 (0.0-0.8) 07/03/18 23:58 Eos # 0.3 K/mm3 (0.0-0.4) 07/03/18 23:58 Baso # 0.0 K/mm3 (0.0-0.1) 07/03/18 23:58 Seg Neutrophils % 64.0 % (40.0-70.0) 07/03/18 23:58 Seg Neutrophils # 4.9 K/mm3 (1.8-7.7) 07/03/18 23:58 Sodium 139 mmol/L (137-145) 07/03/18 23:58 Potassium 4.1 mmol/L (3.6-5.0) 07/03/18 23:58 Chloride 98.9 mmol/L (98-107) 07/03/18 23:58 Carbon Dioxide 26 mmol/L (22-30) 07/03/18 23:58 18 mmol/L 07/03/18 23:58 BUN 10 mg/dL (7-17) 07/03/18 23:58 0.5 mg/dL (0.7-1.2) L 07/03/18 23:58 Estimated GFR > 60 ml/min 07/03/18 23:58 20 % 07/03/18 23:58 Glucose 104 mg/dL (65-100) H 07/03/18 23:58 Lactic Acid 0.90 mmol/L (0.7-2.0) 07/04/18 02:42 Calcium 9.2 mg/dL (8.4-10.2) 07/03/18 23:58 0.30 mg/dL (0.1-1.2) 07/03/18 23:58 AST 11 units/L (5-40) 07/03/18 23:58 ALT 12 units/L (7-56) 07/03/18 23:58 68 units/L (35-129) 07/03/18 23:58 7.3 g/dL (6.3-8.2) 07/03/18 23:58 3.8 g/dL (3.9-5) L 07/03/18 23:58 1.1 % 07/03/18 23:58 Active Medications - Current Medications Current Medications: Generic Name Dose Route Start Last Admin Trade Name Freq PRN Reason Stop Dose Admin Acetaminophen 650 mg 07/04/18 07:24 Tylenol SD Q4H PRN Fever >101 Enoxaparin Sodium 40 mg 07/04/18 10:00 Lovenox SUB-Q QDAY@1000 [facility] Piperacillin Sod/Tazobactam Sod 4.5 gm in 100 mls @ 200 mls/hr 07/04/18 06:00 07/04/18 07:20 Zosyn/Ns 4.5gm/100ml IV Not Given Q8HR [facility] Protocol Morphine Sulfate 2 mg 07/04/18 01:39 07/04/18 04:24 Morphine IV 2 mg Q3H PRN Administration Pain, Moderate (4-6) Naloxone HCl 0.1 mg 07/04/18 06:48 Narcan 0.4 Mg/1 Ml IV Q2MIN PRN Res Rate </= 8 or 02 SAT < 92% Ondansetron HCl 4 mg 07/04/18 01:39 Zofran IV Q8H PRN Nausea And Vomiting Sertraline HCl 100 mg 07/04/18 10:00 Zoloft PO QDAY [facility] Sodium Chloride 10 ml 07/04/18 10:00 07/04/18 10:48 Sodium Chloride Flush Syringe 10 Ml IV Not Given BID MAURICE Sodium Chloride 10 ml 07/04/18 01:39 Sodium Chloride Flush Syringe 10 Ml IV PRN PRN LINE FLUSH
[2018-07-04] MEDS: ZOLOFT PO SCH (12:12)
[2018-07-04] MEDS: LOVENOX SUB-Q SCH (12:14)
--- NOTE | 2018-07-04 13:11 | Consultation ---
History of Present Illness - Reason for Consult Consult date: 07/04/18 Breat Abscess Requesting physician: ANAHI FLORIAN - History of Present Illness This patient is a 36 year old female with a history of breast cancer know n to ID service from previous admission on 08/23/18. Patient is a s/p lumpectomy along with chemo and radiation that underwent a bilateral mastectomy with reconstruction on 08/21/[address] Morris. Admitted to [facility] on 08/21/18 due to 5-day history of left breast erythema, tenderness, and edema surrounding surgical wound and mild right breast erythema and fever. On 08/21 S/P I & D and left breast removal of infected breast grinding machine operator automatic. Superficial culture grew staph aureus. On 08/24 S/p I & D and grinding machine operator automatic removal of right breast. Early Abscess/aspiration of right breast culture also grew Staph aureaus. Patient was discharged on Doxycycline and Keflex for 14 days. She presented to the ED on 07/04/18 with complaints of fever of 101, right breast pain and purulent drainage. On admission WBC 7.6, Creatinine 0.5, CRP 5.30, lactic Acid 1.1, Temperature 98.1, Heart Rate 90, BP 142/88. Blood Cultures were drawn and show no growth to date. Patient states new expanders were placed 06-06-18.. Everything was fine until wednesday when she started to noticed worsening pain and redness to her right breast that extended to her axilla and back. She also noticed that her right SAGE drain that normally drains 30-40 ml's a day was now draining 60-80 ml's a day with yellow instead of clear drainage. She called her physician and he prescribed Doxycycline, however her pain was so excruciating, that she was only able to take one dose and came to the hospital for further evaluation. Review of Systems: General: + subjective fever, +chills,. no nightsweats, unintentional weight change, Cutaneous: no rash, pruritus Head: no headaches or injury Eyes: no changes in vision, eye pain, double vision Ears: no ear pain, ear discharge, ringing or hearing loss Nose: no nose bleeding, stuffiness Mouth & throat: no bleeding gums, no horseness, no dental problems, or swollen glands Neck: no pain, node enlargement/lumps, tyroid enlargement or tenderness Respiratory: no cough, wheezing, sputum, hemoptysis, pleuritic chest pain Cardiovascular: no chest pain, leg edema, cyanosis, ANTHONY, orthopnea Musculoskeletal: S/P mastectomy. Left breast SAGE drain- minimal sanguineous drainage. Right breast SAGE drain moderate sanguineous drainage. Gastrointestinal: + nausea , no vomiting , hematemesis, diarrhea, constipation, melena, bright red blood in stools, fecal incontinence, jaundice Genitourinary/Reproductive: no frequent urination, no dysuria, hematuria, incontinence Neurogical: no seizures, no headaches, no weakness, no paresthesias, no loss of speech or vision; no memory loss, no vertigo, no tremors, no numbness Psychiatric: stable mood; no excessive anxiety, sadness or moodiness Past History Past Medical History: cancer (breast cancer) Past Surgical History: (2), hysterectomy (2015), mastectomy (bilateral), Other Social history: , lives with family Family history: no significant family history Medications and Allergies Allergies Allergy/AdvReac Type Severity Reaction Status Date / Time carboplatin Allergy Anaphylaxis Verified 07/29/17 14:48 Home Medications Medication Instructions Recorded Confirmed Last Taken Type Anastrozole (Nf) [Arimidex (Nf)] 1 mg PO DAILY 07/29/17 07/04/18 08/03/17 09:00 History Sertraline [Zoloft] 100 mg PO QDAY 07/04/18 07/04/18 Unknown History Active Meds: Active Medications Acetaminophen (Tylenol) 650 mg [place] Q4H PRN PRN Reason: Fever >101 Enoxaparin Sodium (Lovenox) 40 mg SUB-Q QDAY@1000 [facility]CIE Last Admin: 07/04/18 12:14 Dose: 40 mg Documented by: Piperacillin Sod/Tazobactam Sod (Zosyn/Ns 4.5gm/100ml) 4.5 gm in 100 mls @ 200 mls/hr IV Q8HR MAURICE; Protocol Last Admin: 07/04/18 07:20 Dose: Not Given Documented by: Morphine Sulfate (Morphine) 2 mg IV Q3H PRN PRN Reason: Pain, Moderate (4-6) Last Admin: 07/04/18 12:34 Dose: 2 mg Documented by: Naloxone HCl (Narcan 0.4 Mg/1 Ml) 0.1 mg IV Q2MIN PRN PRN Reason: Res Rate </= 8 or 02 SAT < 92% Ondansetron HCl (Zofran) 4 mg IV Q8H PRN PRN Reason: Nausea And Vomiting Sertraline HCl (Zoloft) 100 mg PO QDAY [facility] Last Admin: 07/04/18 12:12 Dose: 100 mg Documented by: Sodium Chloride (Sodium Chloride Flush Syringe 10 Ml) 10 ml IV BID [facility] Last Admin: 07/04/18 10:48 Dose: Not Given Documented by: Sodium Chloride (Sodium Chloride Flush Syringe 10 Ml) 10 ml IV PRN PRN PRN Reason: LINE FLUSH Physical Examination - Physical Exam Narrative exam: Constitutional: Alert, cooperative. No acute distress Head, Ears, Nose: Normocephalic, atraumatic. External ears, nose normal Eyes: Conjunctivae/corneas clear. No icterus. No ptosis. Neck: Supple, no meningeal signs Oral: dentition good. no thrush. Cardiovascular: S1, S2 normal. Respiratory: Good air entry, clear to auscultation bilaterally GI: Soft, non-tender; bowel sounds normal. No peritoneal signs Musculoskeletal: S/p Gear Shaper Set Up Operator removal bilateral breast. + SAGE drains with moderated sanguineous drainage, R > L, Skin: No rash or abscess. Hem/Lymphatic: No palpable cervical or supraclavicular nodes. No lymphangitis Psych: Mood ok. Affect normal Neurological: Awake, alert, oriented. - Constitutional Vitals: Vital Signs Temp Pulse Resp BP Pulse Ox 98 F 104 H 16 112/69 96 07/04/18 11:36 07/04/18 11:36 07/04/18 11:36 07/04/18 11:36 07/04/18 11:36 Temperature -Last 24 Hours Temperature 98 F Temperature 98.7 F Temperature 98.2 F Temperature 98.5 F Temperature 98.4 F Temperature 99.5 F Temperature 98.4 F Temperature 98.1 F Results - Labs CBC & Chem 7: 07/03/18 23:58 07/03/18 23:58 Labs: Abnormal lab results 07/03/18 07/03/18 Range/Units 23:58 23:58 [place] % (Auto) 10.7 H (0.0-7.3) % Creatinine 0.5 L (0.7-1.2) mg/dL Glucose 104 H (65-100) mg/dL Albumin 3.8 L (3.9-5) g/dL Assessment and Plan Cultures: Previous Cultures: 08/21/18 Blood: no growth 08/21/18 Left Breast; Wound MSSA 08/21/18 Right Breast Surgical: MSSA 08/21/18 Left Breast Surgical : MSSA 08/24/18 Right Breast Surgical: MSSA Current Cultures: 07/04/18 Blood: in progress 07/04/18 Surgical Biopsy: Right Breast: In progress 07/04/18 Surgical Right Breast : in progress A/P: 36 year old female with a history of breast cancer known to ID service from previous admission on 08/23/18. Patient is a s/p lumpectomy along with chemo and radiation that underwent a bilateral mastectomy with reconstruction on 08/21/[address] Morris. Now admitted with: 1. Right mastectomy wound infection with Gear Shaper Set Up Operator infection: -S/P I & D and grinding machine operator automatic removal of right breast 08/24/17. -Early Abscess/Aspiration of right breast culture grew MSSA -Discharged on Doxycycline and Keflex for 14 days. -Expanders replaced 06-06-18 -S/P removal of bilateral tissue expanders, washout of right breast, and removal of unincorporated mesh on 07/04/18 2. History of Left mastectomy wound infection with Gear Shaper Set Up Operator infection -S/P OR I & D and left breast removal of infected breast grinding machine operator automatic on 08/21/18. OR culture grew MSSA -Expanders replaced 06-06-18 -Left grinding machine operator automatic with leak under the suture tab - removed 07/04/18 Plan: -follow-up right breast surgical culture -follow-up left breast surgical culture -Discontinue Zosyn -Start Cefazolin 2 gms IV every 8 hours [facility] M: [phone] O:[phone]
[2018-07-04] MEDS ORDERED: BENADRYL IV PRN (14:03)
[2018-07-04] MEDS: ceFAZolin 2 GM in NACL 0.9% 100 ML IV SCH ×2 (16:47→23:29)
[2018-07-05] MEDS: MORPHINE IV PRN (03:55)
[2018-07-05] MEDS: LOVENOX SUB-Q SCH (09:22)
[2018-07-05] MEDS: ceFAZolin 2 GM in NACL 0.9% 100 ML IV SCH ×3 (09:22→23:21)
[2018-07-05] MEDS: PERCOCET 5/325 PO PRN ×3 (09:22→23:22)
[2018-07-05] MEDS: ZOLOFT PO SCH (09:23)
[2018-07-05] MEDS: SODIUM CHLORIDE FLUSH SYRINGE 10 ML IV SCH ×2 (09:23→23:22)
--- NOTE | 2018-07-05 09:46 | Progress Note ---
Assessment and Plan Cultures: Previous Cultures: 08/21/18 Blood: no growth 08/21/18 Left Breast; Wound MSSA 08/21/18 Right Breast Surgical: MSSA 08/21/18 Left Breast Surgical : MSSA 08/24/18 Right Breast Surgical: MSSA Current Cultures: 07/04/18 Blood: in progress 07/04/18 Surgical Biopsy: Right Breast: In progress 07/04/18 Surgical Right Breast : Moderate growth of usual skin curry A/P: 36 year old female with a history of breast cancer known to ID service from previous admission on 08/23/18. Patient is a s/p lumpectomy along with chemo and radiation that underwent a bilateral mastectomy with reconstruction on 08/21/[address] Morris. Now admitted with: 1. 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 -Early Abscess/Aspiration of right breast culture grew MSSA -Discharged on Doxycycline and Keflex for 14 days. -Expanders replaced 06-06-18 -S/P removal of bilateral tissue expanders, washout of right breast, and removal of unincorporated mesh on 07/04/18 2. History of Left mastectomy wound infection with Vitreo Retinal Surgeon infection -S/P OR I & D and left breast removal of infected breast shop coordinator on 08/21/18. OR culture grew MSSA -Expanders replaced 06-06-18 -Left shop coordinator with leak under the suture tab - removed 07/04/18 Plan: -follow-up right breast surgical cultures -Continue Cefazolin 2 gms IV every 8 hours, D2 Anticipate Discharge on Ceftin 500mg PO BID and Doxycycline 100mg PO BID for total 7 days after surgery ending 07-11-18 -follow-up ID clinic in 2 weeks [facility] M: [phone] O:[phone] Subjective Date of service: 07/05/18 Interval history: Patient seen and examined. Siting up in bed. Reports minor discomfort when ambulating to the bathroom. No fevers. Objective - Exam Narrative Exam: Constitutional: Alert, cooperative. No acute distress Head, Ears, Nose: Normocephalic, atraumatic. External ears, nose normal Eyes: Conjunctivae/corneas clear. No icterus. No ptosis. Neck: Supple, no meningeal signs Oral: dentition good. no thrush. Cardiovascular: S1, S2 normal. Respiratory: Good air entry, clear to auscultation bilaterally GI: Soft, non-tender; bowel sounds normal. No peritoneal signs Musculoskeletal: S/p Vitreo Retinal Surgeon removal bilateral breast. + SAGE drains with minimal sanguineous drainage, R > L, Skin: No rash or abscess. Hem/Lymphatic: No palpable cervical or supraclavicular nodes. No lymphangitis Psych: Mood ok. Affect normal Neurological: Awake, alert, oriented. - Constitutional Vitals: Vital Signs Temp Pulse Resp BP Pulse Ox 98.6 F 85 18 123/75 95 07/05/18 08:00 07/05/18 08:04 07/05/18 08:00 07/05/18 08:00 07/05/18 08:04 Temperature -Last 24 Hours Temperature 98.6 F Temperature 98.0 F Temperature 98.7 F Temperature 99.1 F Temperature 97.4 F Temperature 98 F - Labs CBC & Chem 7: 07/03/18 23:58 07/03/18 23:58
--- NOTE | 2018-07-05 11:19 | Progress Note ---
Assessment and Plan Assessment and plan: 37-year-old with history of breast cancer status post bilateral mastectomy in 2018 who presented to the hospital with fever and right breast pain with purulent drainage. She has had expanders in her breast since May of this year. She had previous expanders August 2017 that with discontinued due to left breast abscess History of breast cancer status post bilateral mastectomy and chemotherapy with radiation Diagnoses/plan Right breast cellulitis, continue empiric antibiotics, ID consult, case dw her Plastic surgeon 07/04 , Status post removal of bilateral tissue expanders washout of right breast and removal of one Incorporated biological mesh DVT prophylaxis with Lovenox History Interval history: Right breast pain is improved Review of systems Constitutional: No fevers, no malaise, no joint pains CVS: No chest pain, no orthopnea, no dyspnea on exertion, no pedal edema GI: No abdominal pain, no diarrhea, no vomiting, no constipation Respiratory: no wheezing, no coughing Hospitalist Physical - Physical exam Narrative exam: General.: Appears well, no distress, nontoxic HEENT: Moist mucous membranes, extraocular muscles intact, no lymphadenopathy Neck: supple Cardiac: S1-S2 heard Lungs: clear to auscultation bilaterally Bilateral breasts dressing, not removed Abdomen: soft , nontender, nondistended, bowel sounds positive Extremities: no edema clubbing or cyanosis Skin: no rash or lesions Neurologic: no gross focal deficits Psych: calm, and cooperative - Constitutional Vitals: Temp Pulse Resp BP Pulse Ox 98.6 F 85 18 123/75 95 07/05/18 08:00 07/05/18 08:04 07/05/18 10:00 07/05/18 08:00 07/05/18 08:04 Results - Labs CBC & Chem 7: 07/03/18 23:58 07/03/18 23:58 Labs: Laboratory Last Values WBC 7.6 K/mm3 (4.5-11.0) 07/03/18 23:58 RBC 4.00 M/mm3 (3.65-5.03) 07/03/18 23:58 Hgb 12.0 gm/dl (10.1-14.3) 07/03/18 23:58 Hct 35.0 % (30.3-42.9) 07/03/18 23:58 MCV 88 fl (79-97) 07/03/18 23:58 MCH 30 pg (28-32) 07/03/18 23:58 MCHC 34 % (30-34) 07/03/18 23:58 RDW 14.0 % (13.2-15.2) 07/03/18 23:58 Plt Count 215 K/mm3 (140-440) 07/03/18 23:58 Lymph % (Auto) 21.5 % (13.4-35.0) 07/03/18 23:58 Dickey % (Auto) 10.7 % (0.0-7.3) H 07/03/18 23:58 Eos % (Auto) 3.4 % (0.0-4.3) 07/03/18 23:58 Baso % (Auto) 0.4 % (0.0-1.8) 07/03/18 23:58 Lymph # 1.6 K/mm3 (1.2-5.4) 07/03/18 23:58 Dickey # 0.8 K/mm3 (0.0-0.8) 07/03/18 23:58 Eos # 0.3 K/mm3 (0.0-0.4) 07/03/18 23:58 Baso # 0.0 K/mm3 (0.0-0.1) 07/03/18 23:58 Seg Neutrophils % 64.0 % (40.0-70.0) 07/03/18 23:58 Seg Neutrophils # 4.9 K/mm3 (1.8-7.7) 07/03/18 23:58 Sodium 139 mmol/L (137-145) 07/03/18 23:58 Potassium 4.1 mmol/L (3.6-5.0) 07/03/18 23:58 Chloride 98.9 mmol/L (98-107) 07/03/18 23:58 Carbon Dioxide 26 mmol/L (22-30) 07/03/18 23:58 18 mmol/L 07/03/18 23:58 BUN 10 mg/dL (7-17) 07/03/18 23:58 0.5 mg/dL (0.7-1.2) L 07/03/18 23:58 Estimated GFR > 60 ml/min 07/03/18 23:58 20 % 07/03/18 23:58 Glucose 104 mg/dL (65-100) H 07/03/18 23:58 Lactic Acid 0.90 mmol/L (0.7-2.0) 07/04/18 02:42 Calcium 9.2 mg/dL (8.4-10.2) 07/03/18 23:58 0.30 mg/dL (0.1-1.2) 07/03/18 23:58 AST 11 units/L (5-40) 07/03/18 23:58 ALT 12 units/L (7-56) 07/03/18 23:58 68 units/L (35-129) 07/03/18 23:58 7.3 g/dL (6.3-8.2) 07/03/18 23:58 3.8 g/dL (3.9-5) L 07/03/18 23:58 1.1 % 07/03/18 23:58 Active Medications - Current Medications Current Medications: Generic Name Dose Route Start Last Admin Trade Name Freq PRN Reason Stop Dose Admin Acetaminophen 650 mg 07/04/18 07:24 Tylenol MO Q4H PRN Fever >101 Diphenhydramine HCl 25 mg 07/04/18 14:03 Benadryl IV Q6H PRN Itching Enoxaparin Sodium 40 mg 07/04/18 10:00 07/05/18 09:22 Lovenox SUB-Q 40 mg QDAY@1000 MAURICE Administration Cefazolin Sodium 2 gm/ Sodium 100 mls @ 200 mls/hr 07/04/18 16:00 07/05/18 09:22 Chloride IV 200 mls/hr Q8H MAURICE Administration Protocol Naloxone HCl 0.1 mg 07/04/18 06:48 Narcan 0.4 Mg/1 Ml IV Q2MIN PRN Res Rate </= 8 or 02 SAT < 92% Ondansetron HCl 4 mg 07/04/18 01:39 07/04/18 18:55 Zofran IV 4 mg Q8H PRN Administration Nausea And Vomiting Oxycodone/Acetaminophen 1 tab 07/05/18 09:00 07/05/18 09:22 Percocet 5/325 PO 1 tab Q6H PRN Administration Pain, Moderate (4-6) Sertraline HCl 100 mg 07/04/18 10:00 07/05/18 09:23 Zoloft PO 100 mg QDAY MAURICE Administration Sodium Chloride 10 ml 07/04/18 10:00 07/05/18 09:23 Sodium Chloride Flush Syringe 10 Ml IV 10 ml BID MAURICE Administration Sodium Chloride 10 ml 07/04/18 01:39 Sodium Chloride Flush Syringe 10 Ml IV PRN PRN LINE FLUSH
--- NOTE | 2018-07-05 16:05 | Event Note ---
Date: 07/05/18 Physician Attestation: I have personally seen and examined patient. I personally discussed and directed assessment and management with ANESTHESIOLOGY CRNA Lazaro. Ok to d/c on ceftin and doxycycline x 7 days. Wound culture growing normal skin curry. ID clinic f/u in 1-2 weeks. Charlene Dee MD Infectious Diseases [employer] [facility] M [phone] O [phone]
[2018-07-06] MEDS: PERCOCET 5/325 PO PRN ×2 (07:17→15:37)
[2018-07-06] MEDS: ceFAZolin 2 GM in NACL 0.9% 100 ML IV SCH (08:46)
--- NOTE | 2018-07-06 09:33 | Progress Note ---
Assessment and Plan Cultures: Previous Cultures: 08/21/18 Blood: no growth 08/21/18 Left Breast; Wound MSSA 08/21/18 Right Breast Surgical: MSSA 08/21/18 Left Breast Surgical : MSSA 08/24/18 Right Breast Surgical: MSSA Current Cultures: 07/04/18 Blood: in progress 07/04/18 Surgical Biopsy: Right Breast: Staph Epidermis and Enterococcus 07/04/18 Surgical Right Breast : Moderate growth of usual skin curry A/P: 36 year old female with a history of breast cancer known to ID service from previous admission on 08/23/18. Patient is a s/p lumpectomy along with chemo and radiation that underwent a bilateral mastectomy with reconstruction on 08/21/[address] Morris. Now admitted with: 1. Right mastectomy wound infection with Extension Division Director infection: -S/P I & D and traffic engineer removal of right breast 08/24/17. -Early Abscess/Aspiration of right breast culture grew MSSA -Discharged on Doxycycline and Keflex for 14 days. -Expanders replaced 06-06-18 -S/P removal of bilateral tissue expanders, washout of right breast, and removal of unincorporated mesh on 07/04/18 -Surgical biopsy culture grew Staph Epidermis and Enterococcus- Will discharge home on Augmentin and Doxycycline 2. History of Left mastectomy wound infection with Extension Division Director infection -S/P OR I & D and left breast removal of infected breast traffic engineer on 08/21/18. OR culture grew MSSA -Expanders replaced 06-06-18 -Left traffic engineer with leak under the suture tab - removed 07/04/18 Plan: -follow-up right breast surgical cultures -Continue Cefazolin 2 gms IV every 8 hours, D2 Anticipate discharge on Augmentin 875mg PO BID and Doxycycline 100mg PO BID for total 7 days after surgery ending 07-11-18 -follow-up ID clinic in 2 weeks [facility] M: [phone] O:[phone] Subjective Date of service: 07/06/18 Interval history: Patient seen and examined. Siting up in bed. States that she is feeling better and ready to go home No fevers. Objective - Exam Narrative Exam: Constitutional: Alert, cooperative. No acute distress Head, Ears, Nose: Normocephalic, atraumatic. External ears, nose normal Eyes: Conjunctivae/corneas clear. No icterus. No ptosis. Neck: Supple, no meningeal signs Oral: dentition good. no thrush. Cardiovascular: S1, S2 normal. Respiratory: Good air entry, clear to auscultation bilaterally GI: Soft, non-tender; bowel sounds normal. No peritoneal signs Musculoskeletal: S/p Extension Division Director removal bilateral breast. + SAGE drains with minimal sanguineous drainage, R > L, Skin: No rash or abscess. Hem/Lymphatic: No palpable cervical or supraclavicular nodes. No lymphangitis Psych: Mood ok. Affect normal Neurological: Awake, alert, oriented. - Constitutional Vitals: Vital Signs Temp Pulse Resp BP Pulse Ox 98.2 F 91 H 18 115/71 96 07/06/18 08:56 07/06/18 08:56 07/06/18 08:56 07/06/18 08:56 07/06/18 08:56 Temperature -Last 24 Hours Temperature 98.2 F Temperature 98.1 F Temperature 98.9 F Temperature 98.0 F Temperature 98.2 F - Labs CBC & Chem 7: 07/03/18 23:58 07/03/18 23:58
[2018-07-06] MEDS: LOVENOX SUB-Q SCH (10:20)
[2018-07-06] MEDS: ZOLOFT PO SCH (10:20)
[2018-07-06 13:14] VITALS: BP 130/78
--- NOTE | 2018-07-06 13:31 | Discharge Summary ---
Providers - Providers Date of Admission: 07/04/18 01:39 Attending physician: ANAHI FLORIAN MD 07/04/18 00:47 Consult to Physician [CONS] Urgent Comment: Dr. Jackson spoke with Dr. Morris @ 0046 Consulting Provider: ALEX MRORIS Physician Instructions: Reason For Exam: infected breast tissue 07/04/18 11:36 Consult to Physician [CONS] Routine Comment: Consulting Provider: SCOOBY MATHEWS Physician Instructions: Reason For Exam: breast abscess Primary care physician: [facility] MD [facility] Hospitalization Condition: Stable Pertinent studies: Surgical cultures grew staph epi and enterococcus Hospital course: 37-year-old with history of breast cancer status post bilateral mastectomy in 2018 who presented to the hospital with fever and right breast pain with purulent drainage. She has had expanders in her breast since May of this year. She had previous expanders August 2017 that with discontinued due to left breast abscess History of breast cancer status post bilateral mastectomy and chemotherapy with radiation Diagnoses/plan Right breast cellulitis, 07/04 , Status post removal of bilateral tissue expanders washout of right breast and removal of one [employer] biological mesh -She was treated with IV antibiotics in the hospital, she was being discharged on a course of oral antibiotics. DVT prophylaxis with Lovenox Disposition: DC-01 TO HOME OR SELFCARE Time spent for discharge: 33 mins Core Measure Documentation - Palliative Care Palliative Care/ Comfort Measures: Not Applicable - Core Measures Any of the following diagnoses?: none Exam - Physical Exam Narrative exam: General.: Appears well, no distress, nontoxic HEENT: Moist mucous membranes, extraocular muscles intact, no lymphadenopathy Neck: supple Cardiac: S1-S2 heard Lungs: clear to auscultation bilaterally Bilateral breasts dressing, not removed Abdomen: soft , nontender, nondistended, bowel sounds positive Extremities: no edema clubbing or cyanosis Skin: no rash or lesions Neurologic: no gross focal deficits Psych: calm, and cooperative - Constitutional Vitals: Temp Pulse Resp BP Pulse Ox 97.6 F 95 H 18 130/78 95 07/06/18 13:03 07/06/18 13:03 07/06/18 13:03 07/06/18 13:03 07/06/18 13:03 Plan Follow up with: PETEY MCDONNELL MD [Primary Care Provider] - 7 Days Prescriptions: Amoxicillin/Potassium Clav [Augmentin 875-125 Tablet] 1 each PO BID #10 tablet Doxycycline Hyclate [Doxycycline Hyclate TAB] 100 mg PO Q12HR #10 tab oxyCODONE /ACETAMINOPHEN [Percocet 5/325 mg] 1 tab PO Q6H PRN #30 tablet PRN Reason: Pain, Moderate (4-6)
== END 2018-07-06 16:50 | disposition home or self-care (01) | DRG 909 ==
LOC: ED 23:34 → 3B-SURG 07-04 01:39
PROVIDERS: ADMIT Internal Medicine; ATTEND Internal Medicine
PROC: 0HPU0NZ Removal of Tissue Expander from Left Breast, Open Approach (ICD-10-PCS; principal; 2018-07-04)
PROC: 0HPT0NZ Removal of Tissue Expander from Right Breast, Open Approach (ICD-10-PCS; 2018-07-04)
PROC: 0HP Skin and Breast, Removal (ICD-10-PCS; 2018-07-04)
DX: T85.79XA Infection and inflammatory reaction due to other internal prosthetic devices, implants and grafts, initial encounter (principal); N61.1 Abscess of the breast and nipple; Y83.8 Other surgical procedures as the cause of abnormal reaction of the patient, or of later complication, without mention of misadventure at the time of the procedure; Y92.89 Other specified places as the place of occurrence of the external cause; Z90.13 Acquired absence of bilateral breasts and nipples; Z85.3 Personal history of malignant neoplasm of breast; Z90.710 Acquired absence of both cervix and uterus
CPT/HCPCS: 36415; 80053; 82140; 85025; 87040; 87075; 87076; 87116; 87186; G0378; J0690; J1100; J1170; J1200; J1650; J1885; J2250; J2270; J2405; J2543; J2704; J2930; J3010; J3370; J7030; J7040; J7120